=== PATIENT | female | born 1995 | race Caucasian/White ===

== ENCOUNTER 2016-04-22 08:45 | Day surgery (SDC) ==
[2016-04-22] MEDS ORDERED: REGLAN ONE (08:53)
[2016-04-22] MEDS ORDERED: PEPCID ONE (08:53)
[2016-04-22] MEDS ORDERED: KEFZOL 1 GM/D5W 50 ML ONE (08:53)
[2016-04-22] MEDS ORDERED: LR 1,000 ML ONE ×2 (08:53→15:58)
[2016-04-22] MEDS ORDERED: SENSORCAINE 0.25%/EPI 1:200,000 ONE (10:25)
[2016-04-22] MEDS ORDERED: SODIUM CHLORIDE 0.9% ONE (11:35)
[2016-04-22] MEDS ORDERED: FENTANYL ONE (12:24)
[2016-04-22] MEDS ORDERED: DIPRIVAN 1% ONE (12:24)
[2016-04-22] MEDS: MORPHINE ONE ×2 (12:24→12:30)
--- NOTE | 2016-04-22 12:33 | Diag Imaging Result Document ---
PROCEDURE NAME: OPERATIVE CHOLANGIOGRAM - 04/22/2016 INTRAOPERATIVE CHOLANGIOGRAM: COMPARISON: Ultrasound abdomen 04/06/2016. FINDINGS: The exam was performed by the patient's surgeon. Contrast was infused into the cystic duct. This outlines a normal common bile duct. There is good passage of contrast into the duodenum. IMPRESSION: No evidence of complication.
[2016-04-22] MEDS ORDERED: MORPHINE ONE (12:38)
[2016-04-22] MEDS ORDERED: NORCO-10 PO PRN (13:00)
[2016-04-22] MEDS ORDERED: BUPRENEX IV PRN (13:00)
[2016-04-22] MEDS ORDERED: NORCO-10 ONE ×2 (13:19→15:17)
--- NOTE | 2016-04-22 14:23 | OPERATIVE NOTE ---
PROCEDURE DATE: 04/22/2016 DATE OF PROCEDURE: 04/22/2016. PREOPERATIVE DIAGNOSIS: Chronic calculous cholecystitis. POSTOPERATIVE DIAGNOSIS: Chronic calculous cholecystitis. PROCEDURE: Robotic single incision cholecystectomy with operative cholangiogram. SURGEON: Matt Cannon MD. ANESTHESIA: General. ESTIMATED BLOOD LOSS: 5 mL. COMPLICATIONS: None apparent. SPECIMENS: Gallbladder. FINDINGS: The cholangiogram revealed normal distal common bile duct with flow of contrast into the duodenum. The proximal hepatic ducts were not visualized. TECHNIQUE: She was brought to the operating room and placed supine on the table. General anesthesia was induced. She was prepped and draped in the usual sterile fashion. A 2.5 cm incision was made just below the umbilicus in the midline. Dissection was carried down with cautery through the subcutaneous fat down to the fascia. The fascia was opened with cautery for a length of 2.5 cm, safely avoiding injury to the underlying bowel. The port was placed under direct vision. The abdomen was insufflated. The camera trocar was placed and the camera was inserted. Then, the working port trocars were placed under direct vision. The robot was brought in and docked, and the instruments were inserted. I went to the console. The podiatrist assistant grasped the gallbladder and lifted it up superiorly. Dissection of the triangle of Calot was carried out with a hook cautery and blunt dissection until the critical view was obtained. A clip was placed on the distal cystic duct. A ductotomy was made proximal to this with scissors. A 14-gauge Angiocath was passed through the right upper quadrant. The taut cholangiogram catheter was brought through this and placed into the cystic duct and held in place with a clip. We then brought the C-arm in and performed the cholangiogram with findings as noted above. I could not visualize the proximal hepatic radicles, which would have required Trendelenburg position which was not possible with the robot docked to the patient. In any case, I was satisfied that the distal duct was free of obstruction. I removed the catheter and placed 2 clips on the proximal cystic duct. It was divided in between our clips. The cystic artery was then clipped proximally. The distal artery was divided with hook cautery. The gallbladder was removed off the liver bed with hook cautery obtaining hemostasis along the way without spillage of bile. I then rejoined the sterile field. The robot was undocked. The podiatrist assistant had already grasped the gallbladder with her locking grasper, and we brought the grasper, gallbladder and port out all at once. The incision fascia was closed with three interrupted [id number] 0 Vicryl. The skin was closed with running 4-0 subcuticular Monocryl and Steri-Strips. There were no apparent complications. She was awakened in stable condition and transferred to the recovery room.
[2016-04-22 15:54] VITALS: BP 126/76
[2016-04-22] MEDS ORDERED: ROBINUL ONE (15:58)
[2016-04-22] MEDS ORDERED: XYLOCAINE-MPF 2% ONE (15:58)
[2016-04-22] MEDS ORDERED: DECADRON ONE (15:58)
[2016-04-22] MEDS ORDERED: QUELICIN (DOSE) ONE (15:58)
[2016-04-22] MEDS ORDERED: ZEMURON ONE (15:58)
== END 2016-04-22 15:45 | disposition home or self-care (01) ==
LOC: OPS 08:45
PROVIDERS: ATTEND Surgery
DX: K80.10 Calculus of gallbladder with chronic cholecystitis without obstruction (principal)
CPT/HCPCS: 74300; 84703; 88304; J0330; J0690; J1100; J2270; J3010; J7120